=== PATIENT | female | born 1940 | race African-American/Black ===

== ENCOUNTER 2018-07-26 00:33 | Emergency (ER) | payer SELFPAY ==
[~2018-07-26] VITALS: Ht 177.8 cm; Wt 75.0 kg
[2018-07-26 00:33] VITALS: BP 132/68
[2018-07-26] MEDS ORDERED: DIAZEPAM 5 MG TABLET PO ONE (01:00)
[2018-07-26] MEDS ORDERED: PLEASE ENTER ALLERGIES MC SCH (01:00)
[2018-07-26] MEDS ORDERED: IBUPROFEN 200 MG TABLET PO ONE (01:00)
[2018-07-26] MEDS ORDERED: DIAZEPAM 5 MG TABLET ONE (01:40)
[2018-07-26] MEDS ORDERED: IBUPROFEN 600 MG TABLET ONE (01:40)
== END 2018-07-26 03:05 | disposition home or self-care (01) ==
LOC: ED 03:04
DX: S39.012A Strain of muscle, fascia and tendon of lower back, initial encounter (principal); Z59.0 Homelessness; X58.XXXA Exposure to other specified factors, initial encounter; Y93.89 Activity, other specified; Y99.8 Other external cause status; Y92.89 Other specified places as the place of occurrence of the external cause
CPT/HCPCS: 99283

== ENCOUNTER 2018-08-04 19:18 | Emergency (ER) | payer MEDICARE ==
[~2018-08-04] VITALS: Ht 177.8 cm; Wt 72.8 kg
[2018-08-04] MEDS ORDERED: SODIUM CHLORIDE FLUSH 10ML SYR IVF ONE (20:00)
[2018-08-04 20:08] LABS: BASOPHILS % (AUTO) 0 % (0-1); EOSINOPHILS % (AUTO) 0 % (1-7); LYMPHOCYTES # (AUTO) 0.38 x10^3/uL (1-3.4); LYMPHOCYTES % (AUTO) 4 % (22-44); MD NO; MEAN CORPUSCULAR HEMOGLOBIN 31.8 pg (27.5-34.5); MEAN CORPUSCULAR HGB CONC 33.7 g/dL (33.2-36.2); MEAN CORPUSCULAR VOLUME 94.2 fL (81-97); MEAN PLATELET VOLUME 7.5 fL (7.4-10.4); MONOCYTES # (AUTO) 0.62 x10^3/uL (0.2-0.8); MONOCYTES % (AUTO) 7 % (2-9); NEUTROPHILS # (AUTO) 8.11 x10^3/uL (1.8-6.8); NEUTROPHILS % (AUTO) 89 % (42-75); PLATELET COUNT 190 x10^3/uL (130-400); RED BLOOD COUNT 3.95 x10^6/uL (4.38-5.82)
[2018-08-04 20:18] LABS: ALANINE AMINOTRANSFERASE 21 U/L (12-78); ALBUMIN 2.8 g/dL (3.4-5.0); ANION GAP 10 mmol/L (5-15); CALCIUM 8.1 mg/dL (8.5-10.1); CHLORIDE 109 mmol/L (98-107); CREATININE 1.18 mg/dL (0.7-1.3)
[2018-08-04 20:23] LABS: ALKALINE PHOSPHATASE 65 U/L (45-117); BILIRUBIN,TOTAL 0.8 mg/dL (0.2-1.0); TOTAL PROTEIN 6.3 g/dL (6.4-8.2); TROPONIN I 0.025 ng/mL (0.000-0.045)
[2018-08-04 21:56] VITALS: BP 105/47
== END 2018-08-04 21:58 | disposition home or self-care (01) ==
LOC: ED 21:54
DX: R07.89 Other chest pain (principal); R55 Syncope and collapse; Z87.891 Personal history of nicotine dependence
CPT/HCPCS: 36415; 70450; 71045; 80053; 84484; 85025; 93005; 99284

== ENCOUNTER 2018-08-09 09:05 | Emergency (ER) | payer MEDICARE ==
[~2018-08-09] VITALS: Ht 177.8 cm; Wt 65.0 kg
[2018-08-09 09:54] LABS: MEAN CORPUSCULAR HEMOGLOBIN 30.9 pg (27.5-34.5); MEAN CORPUSCULAR HGB CONC 33.2 g/dL (33.2-36.2); MEAN CORPUSCULAR VOLUME 93.2 fL (81-97); MEAN PLATELET VOLUME 7.3 fL (7.4-10.4); PLATELET COUNT 299 x10^3/uL (130-400); RED BLOOD COUNT 3.92 x10^6/uL (4.38-5.82); RED CELL DISTRIBUTION WIDTH 14.3 % (9.4-14.8)
[2018-08-09 09:55] LABS: ALBUMIN 2.4 g/dL (3.4-5.0); ANION GAP 9 mmol/L (5-15); CALCIUM 7.7 mg/dL (8.5-10.1); CHLORIDE 111 mmol/L (98-107)
[2018-08-09 09:57] LABS: CREATININE 1.31 mg/dL (0.7-1.3)
[2018-08-09 09:59] LABS: ACETAMINOPHEN < 2 mcg/mL (10-30); SALICYLATE LEVEL < 1.7 mg/dL (2.8-20.0)
[2018-08-09 10:22] LABS: BASOPHILS % (AUTO) 0 % (0-1); EOSINOPHILS # (AUTO) 0.01 x10^3/uL (0-0.4); EOSINOPHILS % (AUTO) 0 % (1-7); LYMPHOCYTES # (AUTO) 0.46 x10^3/uL (1-3.4); LYMPHOCYTES % (AUTO) 7 % (22-44); MD SCAN; MONOCYTES # (AUTO) 0.84 x10^3/uL (0.2-0.8); MONOCYTES % (AUTO) 13 % (2-9); NEUTROPHILS # (AUTO) 5.22 x10^3/uL (1.8-6.8); NEUTROPHILS % (AUTO) 80 % (42-75)
[2018-08-09 11:35] VITALS: BP 134/56
== END 2018-08-09 11:38 ==
LOC: ED 11:24
DX: F32.9 Major depressive disorder, single episode, unspecified (principal); R45.851 Suicidal ideations; F10.10 Alcohol abuse, uncomplicated; Y90.9 Presence of alcohol in blood, level not specified
CPT/HCPCS: 36415; 80048; 80307; 80329; 82040; 85025; 99284; G0480

== ENCOUNTER 2018-08-10 09:29 | Emergency (ER) | payer MEDICARE ==
[~2018-08-10] VITALS: Ht 177.8 cm; Wt 84.0 kg
[2018-08-10 09:53] VITALS: BP 122/55
[2018-08-10] MEDS ORDERED: KETOROLAC 30 MG/1 ML IM ONE (10:00)
[2018-08-10] MEDS ORDERED: PLEASE ENTER HEIGHT AND WEIGHT MC SCH (10:00)
[2018-08-10] MEDS ORDERED: KETOROLAC 30 MG/1 ML ONE (10:01)
== END 2018-08-10 12:45 | disposition home or self-care (01) ==
LOC: ED 10:03
DX: M51.36 Other intervertebral disc degeneration, lumbar region (principal); G89.29 Other chronic pain
CPT/HCPCS: 72131; 96372; 99284; J1885